=== PATIENT | male | born 1970 | race Caucasian/White ===

== ENCOUNTER 2021-05-12 09:40 | Emergency (ER) | payer OTHER, SELFPAY ==
--- NOTE | ~2021-05-12 | XR_ITS ---
EXAMINATION: XR chest 2V EXAM DATE: 05/12/2021 10:14 INDICATION: Stroke r/o, Weakness TECHNIQUE: Frontal and lateral projections of the chest obtained and reviewed. Comparison is made to prior examination from 10/18/2018. FINDINGS: The lungs are clear. There are no pleural effusions. The cardiomediastinal silhouette is within normal limits. There is no pneumothorax suspected. Patient has diffuse idiopathic skeletal h yperostosis (DISH). IMPRESSION: No acute cardiopulmonary findings. Reviewed, dictated and finalized at location A. MAKER HELPER
--- NOTE | ~2021-05-12 | CT_ITS ---
EXAMINATION: CT brain wo con EXAM DATE: 05/12/2021 10:11 INDICATION: R side facial droop . TECHNIQUE: Spiral CT of the head was performed without contrast. Axial, coronal and sagittal images were reviewed. The dose-length product (DLP) for this examination was 605.33 mGy-cm. The exposure w as tailored according to patient size, and iterative reconstruction (ASIR) was used as additional dos e reduction technique. Comparison is made to prior examination from 10/18/2018. FINDINGS: There is no acute intraparenchymal hemorrhage. No evidence of intraparenchymal brain mass lesion. No evidence of acute infarction. There is no mass effect or midline shift. The ventricles are normal in size. There are no extra-axial collections. There are no acute calvarial fractures. T he orbits are unremarkable. Soft tissue is unremarkable. The visualized sinuses and mastoid air bony ls are well aerated. IMPRESSION: 1. No acute intracranial findings. Reviewed, dictated and finalized at location A. P ROOMS COORDINATOR
[2021-05-12 09:46] VITALS: PULSE 91; RESP 18; O2SAT 98
[2021-05-12 09:48] VITALS: BP 188/112; PULSE 96; RESP 17; O2SAT 99
--- NOTE | 2021-05-12 09:50 | ECG_ITS ---
Measurements Intervals [place] Rate: 84 P: 7 SC: 155 QRS: 3 QRSD: 89 T: 6 QT: 377 QTc: 448 Interpretive Statements SINUS RHYTHM BASELINE ARTIFACT- II, III, AVF NORMAL ECG Electronically Signed On 05-12-2021 13:08:41 [place] by Travis Abarca D.O.
--- NOTE | 2021-05-12 09:54 | ED.NEUROSD ---
HPI - Neuro Symptoms/Deficit General Chief Complaint: Neuro Symptoms/Deficit Stated Complaint: facial droop Time Seen by Provider: 05/12/21 09:46 History of Present Illness HPI Narrative: 51-year-old male presents to the emergency room with acute's onset of a right facial droop that began 2 days ago. Patient has a history of Her's palsy. Patient denies unilateral weakness, slurred speech, altered mental status. Patient also admits a history of high blood pressure, which he discontinued medications 3 years ago. Related Data Allergies Allergy/AdvReac Type Severity Reaction Status Date / Time No Known Allergies Allergy Unverified 10/18/18 11:01 Review of Systems Review of Systems: CONSTITUTIONAL: Denies fever, chills, or sweats. EYES: Denies visual changes, redness, or discharge. ENT: Denies rhinorrhea, congestion, sore throat, or otalgia. CARDIOVASCULAR: Denies chest pain, palpitations, or edema. RESPIRATORY: Denies cough or dyspnea. GASTROINTESTINAL: Denies abdominal pain, nausea, vomiting, or diarrhea. GENITOURINARY: Denies dysuria or hematuria. SKIN: Denies rash or itching. MUSCULOSKELETAL: Denies back pain, joint pain, or myalgia. NEUROLOGIC: Right facial droop. PSYCHIATRIC: Denies anxiety or depression. [facility] Past Medical History Medical History Her palsy Oct 2018 HLD (hyperlipidemia) Hypertension Family History Family History Father Hypertension Social History Social History Smoking status: Never smoker Second hand tobacco smoke exposure: Yes Alcohol intake: current Exam Narrative: GENERAL: Well-appearing, well-nourished, and in no acute distress. HEAD: Normocephalic, atraumatic. EYES: PERRLA and EOMI. ENT: Nares clear, no rhinorrhea or epistaxis. Mucous membranes moist. Oropharynx without tonsillar hypertrophy exudate or other lesions. Bilateral TMs pearly jackson nonbulging NECK: Supple. No adenopathy or masses. No carotid bruits or JVD CHEST: Clear to auscultation. No respiratory distress. No wheezes rales or rhonchi HEART: Regular rate and rhythm. No murmur heard. Normal peripheral pulses. ABDOMEN: Soft, nontender, nondistended, normal active bowel sounds. EXTREMITIES: Normal range of motion. No edema. SKIN: Warm, dry, no rash. NEURO: Right-sided facial paralysis. alert and oriented x3. No unilateral extremity weakness. Equal room maid strength. Sensation equal bilaterally. PSYCH: Normal mood and affect. Course Vital Signs Vital signs: Vital Signs Pulse Rate 91 05/12/21 09:46 Respiratory Rate 18 05/12/21 09:46 Pulse Oximetry 98 05/12/21 09:46 Pulse Rate 94 05/12/21 10:00 Respiratory Rate 23 H 05/12/21 10:00 Blood Pressure 152/107 H 05/12/21 11:16 Pulse Oximetry 99 05/12/21 09:48 MDM - Neuro Symptoms/Deficit MDM Narrative Medical decision making narrative: Head CT was normal. CBC, CMP, and troponin show no concerning abnormalities. EKG normal sinus. Highly suspects Her's palsy. Will treat the hypertension, and send patient home with a course of valacyclovir and steroids. Close follow-up with PCP for chronic hypertension. Lab Data Result diagrams: 05/12/21 10:02 05/12/21 10:02 Labs: Lab Results 05/12/21 05/12/21 Range/Units 10:02 10:02 WBC 4.9 (4.5-10.0) K/mm3 RBC 4.63 (4.6-6.20) M/mm3 Hgb 17.3 (14.0-18.0) g/dL Hct 48.1 (42.0-52.0) % MCV 103.9 H (80-100) fl MCH 37.4 H (26-34) pg MCHC 36.0 (32-36) g/dl RDW 12.4 (11.5-14.5) % Plt Count 136 L (150-375) k/mm3 MPV 9.3 (7.4-10.4) fl Immature Gran % (Auto) 0.2 (0-0.5) % Neut % (Auto) 47.9 (45.5-73.1) % Lymph % (Auto) 34.5 (18.3-44.2) % [place] % (Auto) 12.9 H (2.6-8.5) % Eos % (Auto) 4.1 (0-4.4) % Baso % (Auto) 0.4 (0.2-1.2) % Lymph # (Auto) 1.
[2021-05-12 10:00] VITALS: PULSE 94; RESP 23
[2021-05-12 10:09] LABS: Basophils Percent Auto 0.4 % (0.2-1.2); Eosinophils Absolute Auto 0.2 K/mm3 (0-0.3); Eosinophils Percent Auto 4.1 % (0-4.4); Hematocrit 48.1 % (42.0-52.0); Hemoglobin 17.3 g/dL (14.0-18.0); Immature Granulocyte Absolute 0.01 K/mm3 (0.00-0.031); Immature Granulocyte Percent A 0.2 % (0-0.5); Lymphocytes Absolute Auto 1.68 K/mm3 (0.9-3.2); Lymphocytes Percent Auto 34.5 % (18.3-44.2); Mean Corpuscular Hemoglobin 37.4 pg (26-34); Mean Corpuscular Volume 103.9 fl (80-100); Mean Platelet Volume 9.3 fl (7.4-10.4); Monocytes Absolute Auto 0.6 K/mm3 (0.1-0.6); Monocytes Percent Auto 12.9 % (2.6-8.5); Neutrophils Absolute Auto 2.3 K/mm3 (1.3-6.7); Neutrophils Percent Auto 47.9 % (45.5-73.1); Platelet Count Result 136 k/mm3 (150-375); Red Blood Count 4.63 M/mm3 (4.6-6.20); Red Cell Distribution Width 12.4 % (11.5-14.5); White Blood Count 4.9 K/mm3 (4.5-10.0)
[2021-05-12 10:19] LABS: Alanine Aminotransferase 90 U/L (4-50); Albumin Level 4.5 g/dL (3.5-5.1); Alkaline Phosphatase 100 U/L (38-126); Anion Gap 8 mmol/L (8-16); Aspartate Amino Transferase 76 U/L (17-59); Blood Urea Nitrogen 10 mg/dL (9-20); Calcium 8.7 mg/dL (8.4-10.2); Carbon Dioxide 25 mmol/L (22-30); Chloride 105 mmol/L (98-107); Estimated Glomerular Filt Rate > 60; Glucose 139 mg/dL (65-110); Potassium 3.8 mmol/L (3.4-5.0); Sodium 138 mmol/L (137-145)
[2021-05-12 10:31] LABS: Troponin I < 0.012 ng/mL (0.000-0.034)
[2021-05-12 11:16] VITALS: BP 152/107
== END 2021-05-12 11:49 | disposition home or self-care (01) ==
PROVIDERS: Emergency Provider Nurse Practitioner Family; PCP Family Medicine
DX: G51.0 Bell's palsy (principal); I10 Essential (primary) hypertension; E78.5 Hyperlipidemia, unspecified
CPT/HCPCS: 36415; 70450; 71046; 80053; 84484; 85025; 93005; 99284